=== PATIENT | female | born 1970 | race Two or more races ===

== ENCOUNTER → 2020-12-13 | Outpatient (CLI) | payer BC ==
[2020-12-13 11:53] LABS: Basophils # (auto) 0 10 ^3/uL (0-0.2); Basophils % (auto) 0.7 % (0.0-2.0); Eosinophils # (auto) 0.2 10 ^3/uL (0-0.8); Eosinophils % (auto) 2.8 % (0.0-7.0); Hematocrit 35.4 % (36.0-46.0); Hemoglobin 12.3 g/dL (12.2-16.2); Lymphocytes # (auto) 1.3 10 ^3/uL (0.4-5.4); Lymphocytes % (auto) 19.4 % (10.0-50.0); Mean Corpuscular Hemoglobin 30.6 pg (28.0-32.0); Mean Corpuscular Hgb Conc. 34.7 g/dL (32.0-36.0); Mean Corpuscular Volume 88.2 fL (80.0-100.0); Monocytes # (auto) 0.3 10 ^3/uL (0-1.3); Monocytes % (auto) 4.2 % (0.0-12.0); Neutrophils # (auto) 4.8 10 ^3/uL (1.6-8.6); Neutrophils % (auto) 72.9 % (37.0-80.0); Red Blood Cells 4.02 10^6/uL (4.0-5.20); Red Cell Distribution Width 12.7 % (11.8-14.3); White Blood Cell 6.6 10^3/uL (4.4-10.8)
[2020-12-13 12:35] LABS: Albumin 3.5 g/dL (3.4-5.0); Calcium 9.2 mg/dL (8.5-10.1); Potassium 4.3 mmol/L (3.5-5.1)
[2020-12-13 12:51] LABS: BUN/Creatinine Ratio 18.9; Bilirubin, Total 0.2 mg/dL (0.2-1.0); Total Protein 7.8 g/dL (6.4-8.2)
== END | disposition home or self-care (01) ==
LOC: LAB 11:15
PROVIDERS: ATTEND Internal Medicine
DX: K62.5 Hemorrhage of anus and rectum (principal)
CPT/HCPCS: 36415; 80053; 85025; 86677

== ENCOUNTER 2021-02-23 13:25 | Inpatient (IN) | payer BC ==
[2021-02-18 10:02] LABS: Basophils # (auto) 0 10 ^3/uL (0-0.2); Basophils % (auto) 0.6 % (0.0-2.0); Eosinophils # (auto) 0.2 10 ^3/uL (0-0.8); Eosinophils % (auto) 3.2 % (0.0-7.0); Hematocrit 34.4 % (36.0-46.0); Hemoglobin 11.1 g/dL (12.2-16.2); Lymphocytes # (auto) 1.4 10 ^3/uL (0.4-5.4); Mean Corpuscular Hemoglobin 27.7 pg (28.0-32.0); Mean Corpuscular Hgb Conc. 32.3 g/dL (32.0-36.0); Mean Corpuscular Volume 85.7 fL (80.0-100.0); Monocytes # (auto) 0.4 10 ^3/uL (0-1.3); Neutrophils # (auto) 4.4 10 ^3/uL (1.6-8.6); Neutrophils % (auto) 68.2 % (37.0-80.0); Red Blood Cells 4.01 10^6/uL (4.0-5.20); Red Cell Distribution Width 13.3 % (11.8-14.3); White Blood Cell 6.4 10^3/uL (4.4-10.8)
[2021-02-18 13:35] LABS: Potassium 3.7 mmol/L (3.5-5.1)
[2021-02-18 13:54] LABS: BUN/Creatinine Ratio 15.9
[2021-02-18 13:58] LABS: Albumin 3.5 g/dL (3.4-5.0); Bilirubin, Total 0.2 mg/dL (0.2-1.0)
[~2021-02-23] VITALS: Ht 144.8 cm; Wt 52.7 kg
[~2021-02-23 13:25] MED LIST: PANT40T PO
[2021-02-23] MEDS ORDERED: LIDOCAINE VISCOUS 2% 15ML UD ONE (13:49)
[2021-02-23] MEDS ORDERED: SODIUM CHLORIDE LOCK 10 ML ONE (13:49)
[2021-02-23] MEDS: fentaNYL CITRATE 100 MCG/2 ML VL ONE ×2 (16:04→19:00)
[2021-02-23] MEDS: diphenhdrAMINE HCL 50 MG/1 ML VL ONE ×2 (19:00→19:14)
[2021-02-23] MEDS: MIDAZOLAM HCL 5 MG/ML-1ML VIAL ONE ×2 (19:00→19:04)
[2021-02-23] MEDS ORDERED: NITROGLYCERIN 0.4 MG SL TAB SL PRN (20:15)
[2021-02-23] MEDS ORDERED: MORPHINE SULFATE INJECTION 2 MG/ML SYRG IV PRN (20:15)
[2021-02-23 21:46] LABS: INR 1.02 (0.9-1.15); Partial Thromboplastin Time 29.3 sec (23.6-33.0)
[2021-02-23] MEDS: MORPHINE SULFATE INJECTION 2 MG/ML SYRG IV PRN (21:52)
[2021-02-24] VITALS (9 sets, daily range): BP systolic 115–138; BP diastolic 69–90
[2021-02-24] MEDS: D5W/SOD CHL 0.45%/KCL 20MEQ 1,000 ML IV SCH ×3 (00:07→18:08)
[2021-02-24] MEDS ORDERED: OMNIPAQUE ORAL SOLN 500ml 12mg/ml PO ONE (09:31)
[2021-02-24] MEDS ORDERED: TPN PER PHARMACY 0 ML IV SCH (16:00)
[2021-02-24] MEDS: PANTOPRAZOLE 40 MG/10 ML VIAL INJ IV SCH (16:28)
[2021-02-24 18:40] LABS: Albumin 3.3 g/dL (3.4-5.0); Magnesium 2.1 mg/dL (1.6-2.6)
[2021-02-24 19:09] LABS: BUN/Creatinine Ratio 6.3; Bilirubin, Total 0.3 mg/dL (0.2-1.0); Phosphorus 2.3 mg/dL (2.5-4.90); Pre Albumin 15.1 mg/dL (20.0-40.0); Total Protein 7.5 g/dL (6.4-8.2)
[2021-02-24 19:28] LABS: Calcium 9.4 mg/dL (8.5-10.1)
[2021-02-24] MEDS ORDERED: AMINO ACID INFUSION IN D10W 1,000 ML IV NR (20:00)
[2021-02-24] MEDS ORDERED: SODIUM PHOSPHATES 20 MEQ in SODIUM CHL 0.9% 100 ML IV ONE (21:00)
[2021-02-24] MEDS ORDERED: POTASSIUM PHOSPHATE 22 MEQ in SODIUM CHL 0.9% 100 ML IV ONE (21:00)
[2021-02-24] MEDS: InsuLIN REG 1unit/0.01ml Soln (100units/ml) SC SCH (23:54)
[2021-02-24] MEDS: ACCU-CHEK COMFORT CURVE STRIP VI SCH (23:54)
[2021-02-25] MEDS ORDERED: DEXTROSE (50%) 50ML SYRG IV SCH
[2021-02-25] MEDS: D5W/SOD CHL 0.45%/KCL 20MEQ 1,000 ML IV SCH ×2 (02:15→15:38)
[2021-02-25 05:00] VITALS: BP 121/57
[2021-02-25] MEDS: InsuLIN REG 1unit/0.01ml Soln (100units/ml) SC SCH ×3 (06:00→18:00)
[2021-02-25] MEDS: ACCU-CHEK COMFORT CURVE STRIP VI SCH ×3 (06:09→18:00)
[2021-02-25 06:24] LABS: Basophils # (auto) 0 10 ^3/uL (0-0.2); Basophils % (auto) 0.3 % (0.0-2.0); Eosinophils # (auto) 0.1 10 ^3/uL (0-0.8); Eosinophils % (auto) 1.6 % (0.0-7.0); Hematocrit 33.7 % (36.0-46.0); Hemoglobin 10.8 g/dL (12.2-16.2); Lymphocytes # (auto) 1.2 10 ^3/uL (0.4-5.4); Lymphocytes % (auto) 15.2 % (10.0-50.0); Mean Corpuscular Hemoglobin 27.1 pg (28.0-32.0); Mean Corpuscular Hgb Conc. 32.2 g/dL (32.0-36.0); Mean Corpuscular Volume 84.2 fL (80.0-100.0); Monocytes # (auto) 0.5 10 ^3/uL (0-1.3); Monocytes % (auto) 6.3 % (0.0-12.0); Neutrophils # (auto) 5.9 10 ^3/uL (1.6-8.6); Neutrophils % (auto) 76.6 % (37.0-80.0); Red Cell Distribution Width 13.3 % (11.8-14.3); White Blood Cell 7.7 10^3/uL (4.4-10.8)
[2021-02-25 06:37] LABS: INR 1.1 (0.9-1.15); Partial Thromboplastin Time 30.2 sec (23.6-33.0)
[2021-02-25 06:45] LABS: Albumin 3.1 g/dL (3.4-5.0); Calcium 8.9 mg/dL (8.5-10.1); Magnesium 2.2 mg/dL (1.6-2.6); Potassium 3.7 mmol/L (3.5-5.1)
[2021-02-25 06:49] LABS: BUN/Creatinine Ratio 10.9; Bilirubin, Total 0.2 mg/dL (0.2-1.0); Total Protein 7.4 g/dL (6.4-8.2)
[2021-02-25 08:31] VITALS: BP 114/92
[2021-02-25] MEDS: PANTOPRAZOLE 40 MG/10 ML VIAL INJ IV SCH (10:00)
[2021-02-25 12:24] VITALS: BP 130/98
[2021-02-25] MEDS ORDERED: LIDOCAINE 1% (LOCAL ANESTH.) PF 5ml SDV ID ONE (14:45)
[2021-02-25 16:35] VITALS: BP 122/83
[2021-02-25 20:00] VITALS: BP 139/87
[2021-02-25] MEDS ORDERED: POTASSIUM ACETATE IV NR ×9 (20:00)
[2021-02-25] MEDS ORDERED: FAT EMULSION IV NR ×9 (20:00)
[2021-02-25] MEDS ORDERED: SODIUM PHOSPHATES IV NR ×9 (20:00)
[2021-02-25] MEDS ORDERED: [UNRECOGNIZED DRUG - OTHER] IV NR ×9 (20:00)
[2021-02-25 22:00] VITALS: BP 139/87
[2021-02-25] MEDS: SODIUM CHLOR 0.9% PF (SALINE LOCK) 10ML VIAL/SYR IV SCH (22:41)
[2021-02-26] MEDS: D5W/SOD CHL 0.45%/KCL 20MEQ 1,000 ML IV SCH ×3 (01:26→21:05)
[2021-02-26 05:00] VITALS: BP 119/70
[2021-02-26] MEDS: InsuLIN REG 1unit/0.01ml Soln (100units/ml) SC SCH ×5 (06:00→23:30)
[2021-02-26 06:03] LABS: Potassium 3.9 mmol/L (3.5-5.1)
[2021-02-26 06:09] LABS: Albumin 3.4 g/dL (3.4-5.0); BUN/Creatinine Ratio 16.1; Calcium 9.3 mg/dL (8.5-10.1); Total Protein 8.4 g/dL (6.4-8.2)
[2021-02-26 06:13] LABS: Bilirubin, Total 0.3 mg/dL (0.2-1.0)
[2021-02-26] MEDS: ACCU-CHEK COMFORT CURVE STRIP VI SCH ×5 (06:58→23:28)
[2021-02-26] MEDS ORDERED: MIDAZOLAM HCL 2MG/2ML 2ml VIAL (1mg/ml) ONE (07:29)
[2021-02-26] MEDS ORDERED: fentaNYL CITRATE 5 ML ONE (07:29)
[2021-02-26] MEDS ORDERED: ROCURONIUM 10MG/ML 10ML VIAL IV ONE (07:30)
[2021-02-26] MEDS ORDERED: cefTRIAXone 1GM/50ML D5W 50 ML IV ONE (07:31)
[2021-02-26] MEDS ORDERED: metroNIDAZOLE 500MG/100ML 100 ML IV ONE (07:32)
[2021-02-26] MEDS ORDERED: PROPOFOL 10 MG/ML 20 ML IV ONE (07:59)
[2021-02-26] MEDS ORDERED: LIDOCAINE 2% (LOCAL ANESTH.) PF 5ml SDV ONE (08:00)
[2021-02-26] MEDS ORDERED: ONDANSETRON HCL 4 MG/2 ML VIAL ONE (08:00)
[2021-02-26] MEDS ORDERED: HYDROmorphone HCL 2 MG/ML VL ONE (08:01)
[2021-02-26] MEDS ORDERED: NALOXONE HCL 0.4 MG/ML VIAL ONE (08:39)
[2021-02-26] MEDS ORDERED: POVIDONE IODINE 10 % TOPICAL OINT 30GM TOP ONE (08:54)
[2021-02-26] MEDS ORDERED: GLYCOPYRROLATE 0.2 MG/ML 1ML VIAL ONE (09:01)
[2021-02-26] MEDS ORDERED: NEOSTIGMINE 1 MG/ML INJ (10mg/10ML VIAL) ONE (09:02)
[2021-02-26] MEDS ORDERED: HYDROmorphone HCL 2 MG/ML VL IV PRN (09:45)
[2021-02-26] MEDS ORDERED: ONDANSETRON HCL 4 MG/2 ML VIAL IV PRN (09:45)
[2021-02-26] MEDS: SODIUM CHLOR 0.9% PF (SALINE LOCK) 10ML VIAL/SYR IV SCH ×2 (10:00→21:49)
[2021-02-26] MEDS: PANTOPRAZOLE 40 MG/10 ML VIAL INJ IV SCH (10:00)
[2021-02-26] MEDS: MORPHINE SULFATE INJECTION 2 MG/ML SYRG IV PRN (12:31)
[2021-02-26 12:45] VITALS: BP 142/86
[2021-02-26] MEDS: HYDROmorphone HCL 2 MG/ML VL IV PRN ×3 (15:25→21:59)
[2021-02-26] MEDS: metroNIDAZOLE 500MG/100ML 100 ML IV SCH ×2 (15:25→21:49)
[2021-02-26] MEDS ORDERED: D5W/SOD CHL 0.45%/KCL 20MEQ 1,000 ML IV SCH ×2 (15:45)
[2021-02-26 16:41] VITALS: BP 126/75
[2021-02-26] MEDS ORDERED: traMADol HCL 50 MG TAB PO ONE (18:00)
[2021-02-26] MEDS ORDERED: TPN PER PHARMACY IV NR ×6 (20:00)
[2021-02-26 22:00] VITALS: BP 124/70
[2021-02-27] MEDS: ONDANSETRON HCL 4 MG/2 ML VIAL IV PRN ×2 (01:32→09:17)
[2021-02-27] MEDS: HYDROmorphone HCL 2 MG/ML VL IV PRN ×5 (01:36→22:02)
[2021-02-27 05:00] VITALS: BP 113/63
[2021-02-27] MEDS: metroNIDAZOLE 500MG/100ML 100 ML IV SCH ×3 (05:09→22:07)
[2021-02-27] MEDS: ACCU-CHEK COMFORT CURVE STRIP VI SCH ×4 (05:17→23:48)
[2021-02-27] MEDS: InsuLIN REG 1unit/0.01ml Soln (100units/ml) SC SCH ×4 (05:27→23:55)
[2021-02-27 09:00] VITALS: BP 116/66
[2021-02-27] MEDS: PANTOPRAZOLE 40 MG/10 ML VIAL INJ IV SCH (09:16)
[2021-02-27] MEDS: SODIUM CHLOR 0.9% PF (SALINE LOCK) 10ML VIAL/SYR IV SCH ×2 (09:17→22:07)
[2021-02-27] MEDS: cefTRIAXone 1GM/50ML D5W 50 ML IV SCH (09:17)
[2021-02-27 12:28] LABS: Basophils # (auto) 0 10 ^3/uL (0-0.2); Eosinophils # (auto) 0 10 ^3/uL (0-0.8); Hematocrit 28.5 % (36.0-46.0); Hemoglobin 9.4 g/dL (12.2-16.2); Lymphocytes # (auto) 0.8 10 ^3/uL (0.4-5.4); Mean Corpuscular Hemoglobin 27.7 pg (28.0-32.0); Monocytes # (auto) 0.7 10 ^3/uL (0-1.3); Monocytes % (auto) 4.3 % (0.0-12.0); Neutrophils # (auto) 13.7 10 ^3/uL (1.6-8.6); Neutrophils % (auto) 90.7 % (37.0-80.0); Red Blood Cells 3.39 10^6/uL (4.0-5.20); Red Cell Distribution Width 13.3 % (11.8-14.3); White Blood Cell 15.1 10^3/uL (4.4-10.8)
[2021-02-27 12:42] LABS: Potassium 3.8 mmol/L (3.5-5.1)
[2021-02-27 12:49] LABS: Albumin 2.7 g/dL (3.4-5.0); BUN/Creatinine Ratio 21.2; Bilirubin, Total 0.1 mg/dL (0.2-1.0); Calcium 8.2 mg/dL (8.5-10.1); Magnesium 2.3 mg/dL (1.6-2.6); Phosphorus 1.8 mg/dL (2.5-4.90); Total Protein 6.7 g/dL (6.4-8.2)
[2021-02-27] MEDS: D5W/SOD CHL 0.45%/KCL 20MEQ 1,000 ML IV SCH (12:57)
[2021-02-27 13:00] VITALS: BP 120/69
[2021-02-27] MEDS ORDERED: POTASSIUM PHOSPHATE 22 MEQ in SODIUM CHL 0.9% 100 ML IV ONE (13:15)
[2021-02-27 17:00] VITALS: BP 122/64
[2021-02-27] MEDS ORDERED: TPN PER PHARMACY IV NR ×8 (20:00)
[2021-02-27 22:00] VITALS: BP 138/77
[2021-02-28] MEDS: HYDROmorphone HCL 2 MG/ML VL IV PRN ×4 (03:49→21:02)
[2021-02-28 05:00] VITALS: BP 95/120
[2021-02-28] MEDS: ACCU-CHEK COMFORT CURVE STRIP VI SCH ×3 (05:41→18:08)
[2021-02-28] MEDS: metroNIDAZOLE 500MG/100ML 100 ML IV SCH ×2 (05:41→14:00)
[2021-02-28] MEDS: InsuLIN REG 1unit/0.01ml Soln (100units/ml) SC SCH ×3 (05:42→18:09)
[2021-02-28 06:36] LABS: Potassium 3.6 mmol/L (3.5-5.1)
[2021-02-28 06:46] LABS: Albumin 2.7 g/dL (3.4-5.0); BUN/Creatinine Ratio 20.4; Bilirubin, Total 0.2 mg/dL (0.2-1.0); Calcium 7.5 mg/dL (8.5-10.1); Magnesium 2.1 mg/dL (1.6-2.6); Total Protein 6.9 g/dL (6.4-8.2)
[2021-02-28] MEDS: cefTRIAXone 1GM/50ML D5W 50 ML IV SCH (08:52)
[2021-02-28 09:00] VITALS: BP 134/84
[2021-02-28] MEDS: PANTOPRAZOLE 40 MG/10 ML VIAL INJ IV SCH (09:41)
[2021-02-28] MEDS: SODIUM CHLOR 0.9% PF (SALINE LOCK) 10ML VIAL/SYR IV SCH ×2 (09:41→21:21)
[2021-02-28] MEDS ORDERED: POTASSIUM PHOSP 22MEQ(15MMOLE) in NS 100 ML IV ONE (09:45)
[2021-02-28] MEDS: D5W/SOD CHL 0.45%/KCL 20MEQ 1,000 ML IV SCH (10:38)
[2021-02-28 13:00] VITALS: BP 145/81
[2021-02-28 17:00] VITALS: BP 139/80
[2021-02-28] MEDS ORDERED: TPN PER PHARMACY IV NR ×9 (20:00)
[2021-02-28 22:13] VITALS: BP 123/85
[2021-03-01] MEDS: ACCU-CHEK COMFORT CURVE STRIP VI SCH ×5 (00:19→23:37)
[2021-03-01] MEDS: HYDROmorphone HCL 2 MG/ML VL IV PRN ×3 (03:10→20:02)
[2021-03-01] MEDS: D5W/SOD CHL 0.45%/KCL 20MEQ 1,000 ML IV SCH ×3 (03:27→20:58)
[2021-03-01 05:23] VITALS: BP 130/80
[2021-03-01] MEDS: InsuLIN REG 1unit/0.01ml Soln (100units/ml) SC SCH ×5 (05:36→23:41)
[2021-03-01 07:07] LABS: Basophils # (auto) 0 10 ^3/uL (0-0.2); Basophils % (auto) 0.3 % (0.0-2.0); Eosinophils # (auto) 0.2 10 ^3/uL (0-0.8); Eosinophils % (auto) 1.5 % (0.0-7.0); Hematocrit 30.9 % (36.0-46.0); Hemoglobin 10.3 g/dL (12.2-16.2); Lymphocytes % (auto) 8.5 % (10.0-50.0); Mean Corpuscular Hemoglobin 27.8 pg (28.0-32.0); Mean Corpuscular Hgb Conc. 33.4 g/dL (32.0-36.0); Mean Corpuscular Volume 83.2 fL (80.0-100.0); Monocytes # (auto) 0.7 10 ^3/uL (0-1.3); Monocytes % (auto) 5.9 % (0.0-12.0); Neutrophils # (auto) 9.8 10 ^3/uL (1.6-8.6); Neutrophils % (auto) 83.8 % (37.0-80.0); Red Blood Cells 3.71 10^6/uL (4.0-5.20); Red Cell Distribution Width 13.5 % (11.8-14.3); White Blood Cell 11.7 10^3/uL (4.4-10.8)
[2021-03-01 07:29] LABS: Albumin 2.6 g/dL (3.4-5.0); BUN/Creatinine Ratio 22.2; Calcium 8.4 mg/dL (8.5-10.1); Magnesium 2.3 mg/dL (1.6-2.6)
[2021-03-01 07:32] LABS: Bilirubin, Total 0.3 mg/dL (0.2-1.0); Phosphorus 2.5 mg/dL (2.5-4.90); Total Protein 7.1 g/dL (6.4-8.2)
[2021-03-01 09:00] VITALS: BP 127/87
[2021-03-01] MEDS: cefTRIAXone 1GM/50ML D5W 50 ML IV SCH (09:52)
[2021-03-01] MEDS: PANTOPRAZOLE 40 MG/10 ML VIAL INJ IV SCH (09:52)
[2021-03-01] MEDS: SODIUM CHLOR 0.9% PF (SALINE LOCK) 10ML VIAL/SYR IV SCH ×2 (09:53→21:18)
[2021-03-01] MEDS ORDERED: SORE THROAT SPRAY 6OZ BOTTLE MT PRN (10:15)
[2021-03-01 13:00] VITALS: BP 134/87
[2021-03-01 17:00] VITALS: BP 136/97
[2021-03-01] MEDS ORDERED: TPN PER PHARMACY IV ONE ×8 (20:00)
[2021-03-01 21:59] VITALS: BP 135/83
[2021-03-02] MEDS: HYDROmorphone HCL 2 MG/ML VL IV PRN ×4 (00:36→20:48)
[2021-03-02 04:42] VITALS: BP 121/78
[2021-03-02 05:23] LABS: Basophils # (auto) 0 10 ^3/uL (0-0.2); Basophils % (auto) 0.2 % (0.0-2.0); Eosinophils # (auto) 0.3 10 ^3/uL (0-0.8); Eosinophils % (auto) 2.2 % (0.0-7.0); Hematocrit 32.2 % (36.0-46.0); Hemoglobin 10.4 g/dL (12.2-16.2); Lymphocytes # (auto) 0.9 10 ^3/uL (0.4-5.4); Lymphocytes % (auto) 8.1 % (10.0-50.0); Mean Corpuscular Hemoglobin 27.1 pg (28.0-32.0); Mean Corpuscular Hgb Conc. 32.4 g/dL (32.0-36.0); Mean Corpuscular Volume 83.7 fL (80.0-100.0); Monocytes # (auto) 0.8 10 ^3/uL (0-1.3); Monocytes % (auto) 6.9 % (0.0-12.0); Neutrophils # (auto) 9.5 10 ^3/uL (1.6-8.6); Neutrophils % (auto) 82.6 % (37.0-80.0); Nucleated Red Blood Cells % 0.1 %; Red Blood Cells 3.85 10^6/uL (4.0-5.20); Red Cell Distribution Width 13.4 % (11.8-14.3); White Blood Cell 11.5 10^3/uL (4.4-10.8)
[2021-03-02 05:46] LABS: Calcium 8.5 mg/dL (8.5-10.1); Potassium 4.2 mmol/L (3.5-5.1)
[2021-03-02 05:52] LABS: Albumin 2.6 g/dL (3.4-5.0); BUN/Creatinine Ratio 36.4; Bilirubin, Total 0.2 mg/dL (0.2-1.0); Magnesium 2.5 mg/dL (1.6-2.6); Phosphorus 3.6 mg/dL (2.5-4.90); Total Protein 7.5 g/dL (6.4-8.2)
[2021-03-02] MEDS: InsuLIN REG 1unit/0.01ml Soln (100units/ml) SC SCH ×3 (06:00→18:00)
[2021-03-02] MEDS: ACCU-CHEK COMFORT CURVE STRIP VI SCH ×3 (06:15→18:05)
[2021-03-02 08:32] VITALS: BP 134/89
[2021-03-02] MEDS: PANTOPRAZOLE 40 MG/10 ML VIAL INJ IV SCH (10:14)
[2021-03-02] MEDS: cefTRIAXone 1GM/50ML D5W 50 ML IV SCH (10:15)
[2021-03-02] MEDS: SODIUM CHLOR 0.9% PF (SALINE LOCK) 10ML VIAL/SYR IV SCH ×2 (10:17→23:09)
[2021-03-02 13:05] VITALS: BP 138/84
[2021-03-02 17:21] VITALS: BP 95/135
[2021-03-02] MEDS: D5W/SOD CHL 0.45%/KCL 20MEQ 1,000 ML IV SCH (18:07)
[2021-03-02] MEDS ORDERED: TPN PER PHARMACY IV NR ×10 (20:00)
[2021-03-02 22:00] VITALS: BP 136/85
[2021-03-03] MEDS: ACCU-CHEK COMFORT CURVE STRIP VI SCH ×5 (00:18→23:56)
[2021-03-03] MEDS: HYDROmorphone HCL 2 MG/ML VL IV PRN ×3 (04:16→21:00)
[2021-03-03 05:00] VITALS: BP 117/86
[2021-03-03] MEDS: InsuLIN REG 1unit/0.01ml Soln (100units/ml) SC SCH ×5 (06:00→23:56)
[2021-03-03 06:01] LABS: Basophils # (auto) 0 10 ^3/uL (0-0.2); Eosinophils # (auto) 0.4 10 ^3/uL (0-0.8); Hemoglobin 9.6 g/dL (12.2-16.2); Lymphocytes # (auto) 0.9 10 ^3/uL (0.4-5.4); White Blood Cell 8.6 10^3/uL (4.4-10.8)
[2021-03-03 06:04] LABS: Basophils % (auto) 0.4 % (0.0-2.0); Eosinophils % (auto) 4.9 % (0.0-7.0); Hematocrit 31.9 % (36.0-46.0); Lymphocytes % (auto) 11.1 % (10.0-50.0); Mean Corpuscular Hemoglobin 29.5 pg (28.0-32.0); Mean Corpuscular Hgb Conc. 30.2 g/dL (32.0-36.0); Mean Corpuscular Volume 97.7 fL (80.0-100.0); Monocytes # (auto) 0.6 10 ^3/uL (0-1.3); Monocytes % (auto) 7.4 % (0.0-12.0); Neutrophils # (auto) 6.5 10 ^3/uL (1.6-8.6); Neutrophils % (auto) 76.2 % (37.0-80.0); Red Blood Cells 3.27 10^6/uL (4.0-5.20); Red Cell Distribution Width 14.2 % (11.8-14.3)
[2021-03-03 08:06] VITALS: BP 124/75
[2021-03-03] MEDS: cefTRIAXone 1GM/50ML D5W 50 ML IV SCH (09:14)
[2021-03-03] MEDS: PANTOPRAZOLE 40 MG/10 ML VIAL INJ IV SCH (09:14)
[2021-03-03] MEDS: SODIUM CHLOR 0.9% PF (SALINE LOCK) 10ML VIAL/SYR IV SCH ×2 (09:15→21:49)
[2021-03-03 09:54] LABS: Albumin 2.4 g/dL (3.4-5.0); Bilirubin, Total 0.2 mg/dL (0.2-1.0); Calcium 8.1 mg/dL (8.5-10.1); Magnesium 2.4 mg/dL (1.6-2.6); Phosphorus 3.7 mg/dL (2.5-4.90); Total Protein 6.9 g/dL (6.4-8.2)
[2021-03-03 13:09] VITALS: BP 135/80
[2021-03-03 17:13] VITALS: BP 138/76
[2021-03-03] MEDS ORDERED: TPN PER PHARMACY IV NR ×9 (20:00)
[2021-03-03 22:00] VITALS: BP 135/95
[2021-03-04] VITALS (11 sets, daily range): BP systolic 125–140; BP diastolic 75–89
[2021-03-04] MEDS: HYDROmorphone HCL 2 MG/ML VL IV PRN ×4 (04:27→20:51)
[2021-03-04] MEDS: ACCU-CHEK COMFORT CURVE STRIP VI SCH (06:00)
[2021-03-04 06:24] LABS: Albumin 2.7 g/dL (3.4-5.0); Calcium 8.7 mg/dL (8.5-10.1); Magnesium 2.7 mg/dL (1.6-2.6)
[2021-03-04 06:30] LABS: BUN/Creatinine Ratio 43.5; Bilirubin, Total 0.2 mg/dL (0.2-1.0); Phosphorus 4.8 mg/dL (2.5-4.90); Pre Albumin 21.7 mg/dL (20.0-40.0); Total Protein 7.4 g/dL (6.4-8.2)
[2021-03-04] MEDS: InsuLIN REG 1unit/0.01ml Soln (100units/ml) SC SCH (06:58)
[2021-03-04] MEDS: PANTOPRAZOLE 40 MG/10 ML VIAL INJ IV SCH (09:45)
[2021-03-04] MEDS: SODIUM CHLOR 0.9% PF (SALINE LOCK) 10ML VIAL/SYR IV SCH ×2 (09:45→20:51)
[2021-03-04] MEDS ORDERED: HYDROcodone-ACET 5/325MG TAB PO PRN (10:45)
[2021-03-04 10:51] LABS: INR 1.07 (0.9-1.15); Partial Thromboplastin Time 27.5 sec (23.6-33.0)
[2021-03-04] MEDS ORDERED: fentaNYL CITRATE 100 MCG/2 ML VL IV ONE (11:45)
[2021-03-04] MEDS ORDERED: MIDAZOLAM HCL 2MG/2ML 2ml VIAL (1mg/ml) IV ONE (11:45)
[2021-03-04] MEDS ORDERED: GELATIN 1 SPONGE SIZE 50 TOP ONE (13:29)
[2021-03-04] MEDS ORDERED: LIDOCAINE 2%HCL (LOCAL ANESTH.) INJ 20ML MDV ONE (13:29)
[2021-03-04] MEDS: DOCUSATE SOD 100 MG CAP PO SCH (20:51)
[2021-03-05] MEDS: HYDROmorphone HCL 2 MG/ML VL IV PRN (01:58)
[2021-03-05 07:36] LABS: Basophils # (auto) 0 10 ^3/uL (0-0.2); Basophils % (auto) 0.2 % (0.0-2.0); Eosinophils # (auto) 0.1 10 ^3/uL (0-0.8); Hematocrit 29.1 % (36.0-46.0); Hemoglobin 9.8 g/dL (12.2-16.2); Lymphocytes # (auto) 0.7 10 ^3/uL (0.4-5.4); Lymphocytes % (auto) 6.9 % (10.0-50.0); Mean Corpuscular Hemoglobin 27.9 pg (28.0-32.0); Mean Corpuscular Hgb Conc. 33.5 g/dL (32.0-36.0); Mean Corpuscular Volume 83.2 fL (80.0-100.0); Monocytes # (auto) 0.8 10 ^3/uL (0-1.3); Monocytes % (auto) 7.4 % (0.0-12.0); Neutrophils # (auto) 9.2 10 ^3/uL (1.6-8.6); Neutrophils % (auto) 84.5 % (37.0-80.0); White Blood Cell 10.9 10^3/uL (4.4-10.8)
[2021-03-05 07:53] LABS: Potassium 4.3 mmol/L (3.5-5.1)
[2021-03-05 07:59] LABS: Albumin 2.7 g/dL (3.4-5.0); BUN/Creatinine Ratio 23.8; Calcium 8.8 mg/dL (8.5-10.1)
[2021-03-05 08:07] LABS: Bilirubin, Total 0.3 mg/dL (0.2-1.0); Total Protein 7.3 g/dL (6.4-8.2)
[2021-03-05] MEDS: PANTOPRAZOLE 40 MG/10 ML VIAL INJ IV SCH (08:26)
[2021-03-05] MEDS: DOCUSATE SOD 100 MG CAP PO SCH (08:27)
[2021-03-05] MEDS: SODIUM CHLOR 0.9% PF (SALINE LOCK) 10ML VIAL/SYR IV SCH (08:27)
[2021-03-05 08:29] VITALS: BP 125/82
[2021-03-05 13:00] VITALS: BP 123/81
[2021-03-05 13:23] VITALS: BP 123/81
== END 2021-03-05 14:30 | disposition home or self-care (01) | DRG 330 ==
LOC: GI 13:25 → OVERFLOW 20:11 → EEVIPCON 20:11 → EAST 23:04 → CENTRAL 02-24 19:50 → TELE-CENTR 03-01 07:35
PROVIDERS: ADMIT Nurse Practitioner Acute Care; ATTEND Internal Medicine
PROC: 0DB98ZX Excision of Duodenum, Via Natural or Artificial Opening Endoscopic, Diagnostic (ICD-10-PCS; 2021-02-23)
PROC: 0DB68ZX Excision of Stomach, Via Natural or Artificial Opening Endoscopic, Diagnostic (ICD-10-PCS; 2021-02-23)
PROC: 0DBM8ZX Excision of Descending Colon, Via Natural or Artificial Opening Endoscopic, Diagnostic (ICD-10-PCS; 2021-02-23)
PROC: B548ZZA Ultrasonography of Superior Vena Cava, Guidance (ICD-10-PCS; 2021-02-25)
PROC: 02HV33Z Insertion of Infusion Device into Superior Vena Cava, Percutaneous Approach (ICD-10-PCS; 2021-02-25)
PROC: 0D1M0ZP Bypass Descending Colon to Rectum, Open Approach (ICD-10-PCS; 2021-02-26)
PROC: 0DTN0ZZ Resection of Sigmoid Colon, Open Approach (ICD-10-PCS; principal; 2021-02-26 07:33)
PROC: 3E0436Z Introduction of Nutritional Substance into Central Vein, Percutaneous Approach (ICD-10-PCS; 2021-03-02)
PROC: 0FB03ZX Excision of Liver, Percutaneous Approach, Diagnostic (ICD-10-PCS; 2021-03-04)
DX: C18.7 Malignant neoplasm of sigmoid colon (principal); C78.7 Secondary malignant neoplasm of liver and intrahepatic bile duct; D64.9 Anemia, unspecified; D72.829 Elevated white blood cell count, unspecified; K29.70 Gastritis, unspecified, without bleeding; R16.0 Hepatomegaly, not elsewhere classified; K29.80 Duodenitis without bleeding; Z20.822 Contact with and (suspected) exposure to COVID-19; Z79.899 Other long term (current) drug therapy; Z82.49 Family history of ischemic heart disease and other diseases of the circulatory system; Z87.11 Personal history of peptic ulcer disease; Z88.8 Allergy status to other drugs, medicaments and biological substances
CPT/HCPCS: 10022; 36415; 36569; 43239; 45378; 71045; 71260; 74150; 74177; 77012; 80053; 81025; 82040; 82378; 82962; 83735; 84100; 84478; 84702; 85025; 85610; 85730; 86850; 86900; 86901; C9113; G0378; J0696; J1815; J2001; J2250; J2405; J2704; J3490; J7131

== ENCOUNTER → 2021-04-14 | Outpatient (CLI) | payer BC ==
[2021-04-14 09:40] LABS: Eosinophils # (auto) 0.2 10 ^3/uL (0-0.8); Eosinophils % (auto) 4.1 % (0.0-7.0); Hemoglobin 10.9 g/dL (12.2-16.2); Mean Corpuscular Hgb Conc. 32.2 g/dL (32.0-36.0); Monocytes # (auto) 0.4 10 ^3/uL (0-1.3)
[2021-04-14 09:42] LABS: Basophils # (auto) 0.1 10 ^3/uL (0-0.2); Basophils % (auto) 1.1 % (0.0-2.0); Lymphocytes # (auto) 1.1 10 ^3/uL (0.4-5.4); Lymphocytes % (auto) 24.3 % (10.0-50.0); Mean Corpuscular Hemoglobin 25.7 pg (28.0-32.0); Mean Corpuscular Volume 79.8 fL (80.0-100.0); Monocytes % (auto) 7.6 % (0.0-12.0); Neutrophils # (auto) 2.9 10 ^3/uL (1.6-8.6); Neutrophils % (auto) 62.9 % (37.0-80.0); Nucleated Red Blood Cells % 0.1 %; Red Blood Cells 4.26 10^6/uL (4.0-5.20); Red Cell Distribution Width 15.7 % (11.8-14.3); White Blood Cell 4.6 10^3/uL (4.4-10.8)
[2021-04-14 11:24] LABS: Albumin 3.5 g/dL (3.4-5.0); Calcium 9.1 mg/dL (8.5-10.1); Potassium 4.6 mmol/L (3.5-5.1)
[2021-04-14 11:27] LABS: BUN/Creatinine Ratio 20.3; Bilirubin, Total 0.2 mg/dL (0.2-1.0); Total Protein 7.9 g/dL (6.4-8.2)
== END | disposition home or self-care (01) ==
LOC: LAB 09:24
PROVIDERS: ATTEND Internal Medicine
DX: C18.9 Malignant neoplasm of colon, unspecified (principal)
CPT/HCPCS: 36415; 80053; 82306; 82378; 83615; 85025

== ENCOUNTER → 2021-04-22 | Day surgery (SDC) | payer BC ==
[2021-04-20 10:15] LABS: Urine Bacteria NONE SEEN /hpf (None Seen); Urine Blood TRACE /uL (Negative); Urine WBC <1 /hpf (0 - 5)
[2021-04-20 10:27] LABS: Basophils # (auto) 0 10 ^3/uL (0-0.2); Eosinophils # (auto) 0.2 10 ^3/uL (0-0.8); Hemoglobin 11.1 g/dL (12.2-16.2); Lymphocytes # (auto) 1.4 10 ^3/uL (0.4-5.4); Monocytes # (auto) 0.4 10 ^3/uL (0-1.3); Red Cell Distribution Width 16.2 % (11.8-14.3)
[2021-04-20 10:30] LABS: Basophils % (auto) 0.7 % (0.0-2.0); Eosinophils % (auto) 3.7 % (0.0-7.0); Hematocrit 35.1 % (36.0-46.0); Lymphocytes % (auto) 23.2 % (10.0-50.0); Mean Corpuscular Hgb Conc. 31.5 g/dL (32.0-36.0); Mean Corpuscular Volume 79.2 fL (80.0-100.0); Monocytes % (auto) 6.4 % (0.0-12.0); Nucleated Red Blood Cells % 0.1 %; Red Blood Cells 4.43 10^6/uL (4.0-5.20)
[2021-04-20 10:56] LABS: Calcium 9.5 mg/dL (8.5-10.1); Potassium 4.2 mmol/L (3.5-5.1)
[2021-04-20 10:59] LABS: BUN/Creatinine Ratio 17.4; Bilirubin, Total 0.3 mg/dL (0.2-1.0); Total Protein 8.3 g/dL (6.4-8.2)
[~2021-04-22] VITALS: Ht 144.8 cm; Wt 49.4 kg
[~2021-04-22] MED LIST changes: +GLYCOPYRROLATE 0.2 MG/ML 1ML VIAL ONE; +HEPARIN 1,000 UNITS/ml 1ML VIAL ONE; +HEPARIN SODIUM (PORCINE) 5000 UNITS/ML 1ML VIAL ONE; +HYDROmorphone HCL 2 MG/ML VL IV PRN; +LIDOCAINE 1% HCL (LOCAL ANESTH.) INJ 20ML MDV ONE; +MIDAZOLAM HCL 2MG/2ML 2ml VIAL (1mg/ml) ONE; +ONDANSETRON HCL 4 MG/2 ML VIAL IV PRN; +PROPOFOL 10 MG/ML 20 ML IV ONE; +ROCURONIUM 10MG/ML 10ML VIAL IV ONE; +SUCCINYLCHOLINE CHLORIDE 20 MG/ML 10ML VIAL IV ONE; +ceFAZolin 1GM VL ONE; +ceFAZolin 1GM/50ML 50 ML IV ONE; +fentaNYL CITRATE 100 MCG/2 ML VL ONE
[2021-04-22 13:00] VITALS: BP 117/53
== END | disposition home or self-care (01) ==
LOC: SUR 08:00
PROVIDERS: ATTEND Surgery
DX: C78.7 Secondary malignant neoplasm of liver and intrahepatic bile duct (principal); C18.9 Malignant neoplasm of colon, unspecified; C25.9 Malignant neoplasm of pancreas, unspecified; Z82.49 Family history of ischemic heart disease and other diseases of the circulatory system; Z86.11 Personal history of tuberculosis; Z83.511 Family history of glaucoma; Z83.49 Family history of other endocrine, nutritional and metabolic diseases; Z98.890 Other specified postprocedural states; Z79.899 Other long term (current) drug therapy; Z20.822 Contact with and (suspected) exposure to COVID-19; Z88.8 Allergy status to other drugs, medicaments and biological substances
CPT/HCPCS: 36415; 36556; 80053; 81001; 81025; 84702; 85025; C1788; J0330; J0690; J1170; J1644; J2001; J2250; J2405; J2704; J3010; J7040; U0003; 71045

== ENCOUNTER → 2021-04-25 | Outpatient (CLI) | payer BC ==
[~2021-04-25] MED LIST changes: -GLYCOPYRROLATE 0.2 MG/ML 1ML VIAL ONE; -HEPARIN 1,000 UNITS/ml 1ML VIAL ONE; -HEPARIN SODIUM (PORCINE) 5000 UNITS/ML 1ML VIAL ONE; -HYDROmorphone HCL 2 MG/ML VL IV PRN; -LIDOCAINE 1% HCL (LOCAL ANESTH.) INJ 20ML MDV ONE; -MIDAZOLAM HCL 2MG/2ML 2ml VIAL (1mg/ml) ONE; -ONDANSETRON HCL 4 MG/2 ML VIAL IV PRN; -PROPOFOL 10 MG/ML 20 ML IV ONE; -ROCURONIUM 10MG/ML 10ML VIAL IV ONE; -SUCCINYLCHOLINE CHLORIDE 20 MG/ML 10ML VIAL IV ONE; -ceFAZolin 1GM VL ONE; -ceFAZolin 1GM/50ML 50 ML IV ONE; -fentaNYL CITRATE 100 MCG/2 ML VL ONE
[2021-04-25 15:03] LABS: Basophils # (auto) 0 10 ^3/uL (0-0.2); Eosinophils # (auto) 0.2 10 ^3/uL (0-0.8); Lymphocytes # (auto) 1.4 10 ^3/uL (0.4-5.4); Mean Corpuscular Hemoglobin 25.2 pg (28.0-32.0); Mean Corpuscular Hgb Conc. 32.1 g/dL (32.0-36.0); Monocytes # (auto) 0.5 10 ^3/uL (0-1.3); Neutrophils # (auto) 3.7 10 ^3/uL (1.6-8.6); Nucleated Red Blood Cells % 0.1 %
[2021-04-25 15:05] LABS: Basophils % (auto) 0.5 % (0.0-2.0); Eosinophils % (auto) 3.4 % (0.0-7.0); Hematocrit 33.7 % (36.0-46.0); Hemoglobin 10.8 g/dL (12.2-16.2); Lymphocytes % (auto) 24.3 % (10.0-50.0); Mean Corpuscular Volume 78.5 fL (80.0-100.0); Monocytes % (auto) 8.4 % (0.0-12.0); Neutrophils % (auto) 63.4 % (37.0-80.0); Red Blood Cells 4.29 10^6/uL (4.0-5.20); Red Cell Distribution Width 16.1 % (11.8-14.3); White Blood Cell 5.9 10^3/uL (4.4-10.8)
[2021-04-25 15:36] LABS: Albumin 3.9 g/dL (3.4-5.0); Calcium 9.3 mg/dL (8.5-10.1); Potassium 4.2 mmol/L (3.5-5.1)
[2021-04-25 15:47] LABS: Thyroid Stimulating Hormone 0.45 uIU/mL (0.358-3.74)
[2021-04-25 15:54] LABS: BUN/Creatinine Ratio 17.2; Bilirubin, Total 0.2 mg/dL (0.2-1.0); Total Protein 8.2 g/dL (6.4-8.2)
== END | disposition home or self-care (01) ==
LOC: LAB 14:44
PROVIDERS: ATTEND Internal Medicine
DX: C18.7 Malignant neoplasm of sigmoid colon (principal); C78.7 Secondary malignant neoplasm of liver and intrahepatic bile duct
CPT/HCPCS: 36415; 80053; 82378; 83615; 84436; 84443; 85025

== ENCOUNTER → 2021-05-09 | Outpatient (CLI) | payer BC ==
[2021-05-09 11:49] LABS: Basophils # (auto) 0 10 ^3/uL (0-0.2); Eosinophils # (auto) 0.2 10 ^3/uL (0-0.8); Monocytes # (auto) 0.3 10 ^3/uL (0-1.3); Monocytes % (auto) 8.3 % (0.0-12.0); Neutrophils # (auto) 1.9 10 ^3/uL (1.6-8.6); Nucleated Red Blood Cells % 0.3 %; White Blood Cell 3.4 10^3/uL (4.4-10.8)
[2021-05-09 11:52] LABS: Basophils % (auto) 0.8 % (0.0-2.0); Eosinophils % (auto) 5.2 % (0.0-7.0); Hematocrit 32.1 % (36.0-46.0); Hemoglobin 10.5 g/dL (12.2-16.2); Mean Corpuscular Hemoglobin 25.6 pg (28.0-32.0); Mean Corpuscular Hgb Conc. 32.7 g/dL (32.0-36.0); Mean Corpuscular Volume 78.3 fL (80.0-100.0); Neutrophils % (auto) 55.7 % (37.0-80.0); Red Cell Distribution Width 16.5 % (11.8-14.3)
[2021-05-09 12:55] LABS: Albumin 3.5 g/dL (3.4-5.0); Calcium 9.5 mg/dL (8.5-10.1); Potassium 4.4 mmol/L (3.5-5.1)
[2021-05-09 13:00] LABS: BUN/Creatinine Ratio 9.9; Bilirubin, Total 0.2 mg/dL (0.2-1.0); Total Protein 7.8 g/dL (6.4-8.2)
== END | disposition home or self-care (01) ==
LOC: LAB 11:30
PROVIDERS: ATTEND Internal Medicine
DX: C78.7 Secondary malignant neoplasm of liver and intrahepatic bile duct (principal); C18.7 Malignant neoplasm of sigmoid colon
CPT/HCPCS: 36415; 80053; 83615; 85025

== ENCOUNTER → 2021-05-23 | Outpatient (CLI) | payer BC ==
[2021-05-23 11:39] LABS: Basophils # (auto) 0 10 ^3/uL (0-0.2); Eosinophils # (auto) 0.1 10 ^3/uL (0-0.8); Hemoglobin 10.7 g/dL (12.2-16.2); Lymphocytes # (auto) 1.2 10 ^3/uL (0.4-5.4); Monocytes # (auto) 0.4 10 ^3/uL (0-1.3); Neutrophils # (auto) 1.4 10 ^3/uL (1.6-8.6); Neutrophils % (auto) 44.5 % (37.0-80.0); White Blood Cell 3.2 10^3/uL (4.4-10.8)
[2021-05-23 11:43] LABS: Basophils % (auto) 1.3 % (0.0-2.0); Eosinophils % (auto) 3.6 % (0.0-7.0); Hematocrit 33.3 % (36.0-46.0); Lymphocytes % (auto) 38.5 % (10.0-50.0); Mean Corpuscular Hemoglobin 24.8 pg (28.0-32.0); Mean Corpuscular Hgb Conc. 32.1 g/dL (32.0-36.0); Monocytes % (auto) 12.1 % (0.0-12.0); Nucleated Red Blood Cells % 0.3 %; Red Cell Distribution Width 17.4 % (11.8-14.3)
[2021-05-23 11:53] LABS: Mean Corpuscular Volume 77.4 fL (80.0-100.0)
[2021-05-23 12:28] LABS: Albumin 3.9 g/dL (3.4-5.0); BUN/Creatinine Ratio 14.3; Calcium 9.6 mg/dL (8.5-10.1); Potassium 4.5 mmol/L (3.5-5.1)
[2021-05-23 12:40] LABS: Bilirubin, Total 0.2 mg/dL (0.2-1.0); Total Protein 7.9 g/dL (6.4-8.2)
[2021-05-23 12:59] LABS: Thyroid Stimulating Hormone 0.86 uIU/mL (0.358-3.74)
== END | disposition home or self-care (01) ==
LOC: LAB 10:38
PROVIDERS: ATTEND Internal Medicine
DX: C18.7 Malignant neoplasm of sigmoid colon (principal); C78.7 Secondary malignant neoplasm of liver and intrahepatic bile duct
CPT/HCPCS: 36415; 80053; 82378; 83615; 84436; 84443; 85025

== ENCOUNTER → 2021-06-07 | Outpatient (CLI) | payer BC ==
[2021-06-07 10:17] LABS: Basophils # (auto) 0 10 ^3/uL (0-0.2); Basophils % (auto) 0.6 % (0.0-2.0); Eosinophils # (auto) 0.2 10 ^3/uL (0-0.8); Eosinophils % (auto) 4.4 % (0.0-7.0); Hematocrit 36.7 % (36.0-46.0); Hemoglobin 11.9 g/dL (12.2-16.2); Lymphocytes # (auto) 1.2 10 ^3/uL (0.4-5.4); Lymphocytes % (auto) 23.9 % (10.0-50.0); Mean Corpuscular Hemoglobin 26.1 pg (28.0-32.0); Mean Corpuscular Hgb Conc. 32.5 g/dL (32.0-36.0); Mean Corpuscular Volume 80.3 fL (80.0-100.0); Monocytes # (auto) 0.4 10 ^3/uL (0-1.3); Neutrophils # (auto) 3.2 10 ^3/uL (1.6-8.6); Neutrophils % (auto) 63.1 % (37.0-80.0); Nucleated Red Blood Cells % 0.1 %; Red Blood Cells 4.57 10^6/uL (4.0-5.20); Red Cell Distribution Width 20.9 % (11.8-14.3); White Blood Cell 5.1 10^3/uL (4.4-10.8)
[2021-06-07 10:47] LABS: Albumin 3.7 g/dL (3.4-5.0); Calcium 9.5 mg/dL (8.5-10.1); Potassium 4.1 mmol/L (3.5-5.1)
[2021-06-07 10:51] LABS: BUN/Creatinine Ratio 16.7; Bilirubin, Total 0.2 mg/dL (0.2-1.0); Total Protein 8.3 g/dL (6.4-8.2)
[2021-06-07 10:58] LABS: Thyroid Stimulating Hormone 0.7 uIU/mL (0.358-3.74)
[2021-06-07 11:25] LABS: Carcinoembryonic Antigen 55.9 ng/mL (<5.0 OR =); Free T4 (Free Thyroxine) 1.17 ng/dL (0.89-1.76)
== END | disposition home or self-care (01) ==
LOC: LAB 09:01
PROVIDERS: ATTEND Internal Medicine
DX: C78.7 Secondary malignant neoplasm of liver and intrahepatic bile duct (principal); C18.7 Malignant neoplasm of sigmoid colon
CPT/HCPCS: 36415; 80053; 82378; 83615; 84439; 84443; 85025

== ENCOUNTER → 2021-06-20 | Outpatient (CLI) | payer BC ==
[2021-06-20 11:30] LABS: Basophils # (auto) 0 10 ^3/uL (0-0.2); Eosinophils # (auto) 0.2 10 ^3/uL (0-0.8); Hemoglobin 11.7 g/dL (12.2-16.2); Monocytes # (auto) 0.3 10 ^3/uL (0-1.3); Neutrophils # (auto) 1.5 10 ^3/uL (1.6-8.6)
[2021-06-20 11:32] LABS: Hematocrit 34.9 % (36.0-46.0); Lymphocytes % (auto) 33.2 % (10.0-50.0); Mean Corpuscular Hgb Conc. 33.5 g/dL (32.0-36.0); Mean Corpuscular Volume 80.8 fL (80.0-100.0); Monocytes % (auto) 8.9 % (0.0-12.0); Neutrophils % (auto) 50.9 % (37.0-80.0); Nucleated Red Blood Cells % 0.2 %; Red Blood Cells 4.31 10^6/uL (4.0-5.20); Red Cell Distribution Width 22.4 % (11.8-14.3)
[2021-06-20 11:54] LABS: Albumin 3.9 g/dL (3.4-5.0); Calcium 9.6 mg/dL (8.5-10.1)
[2021-06-20 11:57] LABS: Bilirubin, Total 0.3 mg/dL (0.2-1.0)
== END | disposition home or self-care (01) ==
LOC: LAB 10:13
PROVIDERS: ATTEND Internal Medicine
DX: C18.7 Malignant neoplasm of sigmoid colon (principal); C78.7 Secondary malignant neoplasm of liver and intrahepatic bile duct
CPT/HCPCS: 36415; 80053; 83615; 85025

== ENCOUNTER → 2021-07-05 | Outpatient (CLI) | payer BC ==
[2021-07-05 11:30] LABS: Potassium 4.1 mmol/L (3.5-5.1)
[2021-07-05 11:38] LABS: Albumin 3.5 g/dL (3.4-5.0); BUN/Creatinine Ratio 21.7; Bilirubin, Total 0.2 mg/dL (0.2-1.0); Calcium 9.3 mg/dL (8.5-10.1); Total Protein 7.8 g/dL (6.4-8.2)
[2021-07-05 11:42] LABS: Basophils # (auto) 0 10 ^3/uL (0-0.2); Basophils % (auto) 0.8 % (0.0-2.0); Eosinophils # (auto) 0.1 10 ^3/uL (0-0.8); Lymphocytes % (auto) 24.1 % (10.0-50.0); Mean Corpuscular Hemoglobin 28.5 pg (28.0-32.0); Mean Corpuscular Hgb Conc. 34.2 g/dL (32.0-36.0); Mean Corpuscular Volume 83.3 fL (80.0-100.0); Monocytes # (auto) 0.4 10 ^3/uL (0-1.3); Monocytes % (auto) 10.8 % (0.0-12.0); Neutrophils # (auto) 2.5 10 ^3/uL (1.6-8.6); Neutrophils % (auto) 61.3 % (37.0-80.0); Red Cell Distribution Width 23.8 % (11.8-14.3); White Blood Cell 4.1 10^3/uL (4.4-10.8)
[2021-07-05 11:46] LABS: Thyroid Stimulating Hormone 0.79 uIU/mL (0.358-3.74)
== END | disposition home or self-care (01) ==
LOC: LAB 09:35
PROVIDERS: ATTEND Internal Medicine
DX: C18.7 Malignant neoplasm of sigmoid colon (principal); C78.7 Secondary malignant neoplasm of liver and intrahepatic bile duct
CPT/HCPCS: 36415; 80053; 82378; 83615; 84436; 84443; 85025

== ENCOUNTER → 2021-07-18 | Outpatient (CLI) | payer BC ==
[2021-07-18 11:33] LABS: Albumin 3.9 g/dL (3.4-5.0); Calcium 10.2 mg/dL (8.5-10.1); Potassium 4.2 mmol/L (3.5-5.1)
[2021-07-18 11:35] LABS: BUN/Creatinine Ratio 17.1
[2021-07-18 11:38] LABS: Bilirubin, Total 0.4 mg/dL (0.2-1.0); Total Protein 8.6 g/dL (6.4-8.2)
[2021-07-18 11:57] LABS: Basophils # (auto) 0 10 ^3/uL (0-0.2); Basophils % (auto) 0.2 % (0.0-2.0); Eosinophils # (auto) 0.1 10 ^3/uL (0-0.8); Eosinophils % (auto) 1.9 % (0.0-7.0); Hematocrit 40.2 % (36.0-46.0); Hemoglobin 13.5 g/dL (12.2-16.2); Lymphocytes # (auto) 1.3 10 ^3/uL (0.4-5.4); Lymphocytes % (auto) 20.3 % (10.0-50.0); Mean Corpuscular Hemoglobin 28.4 pg (28.0-32.0); Mean Corpuscular Hgb Conc. 33.6 g/dL (32.0-36.0); Mean Corpuscular Volume 84.5 fL (80.0-100.0); Monocytes # (auto) 1.1 10 ^3/uL (0-1.3); Monocytes % (auto) 17.1 % (0.0-12.0); Neutrophils # (auto) 3.8 10 ^3/uL (1.6-8.6); Neutrophils % (auto) 60.5 % (37.0-80.0); Nucleated Red Blood Cells % 0.1 %; Red Blood Cells 4.76 10^6/uL (4.0-5.20); Red Cell Distribution Width 23.3 % (11.8-14.3); White Blood Cell 6.4 10^3/uL (4.4-10.8)
== END | disposition home or self-care (01) ==
LOC: LAB 10:27
PROVIDERS: ATTEND Internal Medicine
DX: C18.7 Malignant neoplasm of sigmoid colon (principal); C78.7 Secondary malignant neoplasm of liver and intrahepatic bile duct
CPT/HCPCS: 36415; 80053; 83615; 85025

== ENCOUNTER → 2021-08-02 | Outpatient (CLI) | payer BC ==
[2021-08-02 12:54] LABS: Albumin 3.4 g/dL (3.4-5.0); Calcium 9.1 mg/dL (8.5-10.1); Potassium 4.3 mmol/L (3.5-5.1)
[2021-08-02 12:59] LABS: Bilirubin, Total 0.4 mg/dL (0.2-1.0); Total Protein 7.7 g/dL (6.4-8.2)
[2021-08-02 13:06] LABS: Thyroid Stimulating Hormone 0.79 uIU/mL (0.358-3.74)
[2021-08-02 15:20] LABS: Basophils # (auto) 0 10 ^3/uL (0-0.2); Eosinophils # (auto) 0.2 10 ^3/uL (0-0.8); Hematocrit 38.2 % (36.0-46.0); Hemoglobin 12.6 g/dL (12.2-16.2); Lymphocytes # (auto) 1.2 10 ^3/uL (0.4-5.4); Lymphocytes % (auto) 38.3 % (10.0-50.0); Mean Corpuscular Hemoglobin 28.8 pg (28.0-32.0); Mean Corpuscular Hgb Conc. 33.1 g/dL (32.0-36.0); Monocytes # (auto) 0.5 10 ^3/uL (0-1.3); Monocytes % (auto) 15.9 % (0.0-12.0); Neutrophils # (auto) 1.3 10 ^3/uL (1.6-8.6); Neutrophils % (auto) 39.8 % (37.0-80.0); Nucleated Red Blood Cells % 0.2 %; Red Blood Cells 4.39 10^6/uL (4.0-5.20); White Blood Cell 3.2 10^3/uL (4.4-10.8)
[2021-08-02 15:26] LABS: Red Cell Distribution Width 23.5 % (11.8-14.3)
== END | disposition home or self-care (01) ==
LOC: LAB 10:19
PROVIDERS: ATTEND Internal Medicine
DX: C18.7 Malignant neoplasm of sigmoid colon (principal); C78.7 Secondary malignant neoplasm of liver and intrahepatic bile duct
CPT/HCPCS: 36415; 80053; 82378; 83615; 84436; 84443; 85025

== ENCOUNTER → 2021-08-15 | Outpatient (CLI) | payer BC ==
[2021-08-15 10:00] LABS: Basophils # (auto) 0.1 10 ^3/uL (0-0.2); Basophils % (auto) 2.2 % (0.0-2.0); Eosinophils # (auto) 0.1 10 ^3/uL (0-0.8); Eosinophils % (auto) 3.3 % (0.0-7.0); Hematocrit 36.8 % (36.0-46.0); Hemoglobin 12.8 g/dL (12.2-16.2); Lymphocytes % (auto) 33.4 % (10.0-50.0); Mean Corpuscular Hemoglobin 30.5 pg (28.0-32.0); Mean Corpuscular Hgb Conc. 34.7 g/dL (32.0-36.0); Mean Corpuscular Volume 87.9 fL (80.0-100.0); Monocytes # (auto) 0.6 10 ^3/uL (0-1.3); Monocytes % (auto) 18.6 % (0.0-12.0); Neutrophils # (auto) 1.3 10 ^3/uL (1.6-8.6); Neutrophils % (auto) 42.5 % (37.0-80.0); Nucleated Red Blood Cells % 0.2 %; Red Blood Cells 4.18 10^6/uL (4.0-5.20); Red Cell Distribution Width 21.7 % (11.8-14.3); White Blood Cell 3.1 10^3/uL (4.4-10.8)
[2021-08-15 10:32] LABS: Albumin 3.6 g/dL (3.4-5.0); Calcium 9.3 mg/dL (8.5-10.1); Potassium 4.2 mmol/L (3.5-5.1)
[2021-08-15 10:34] LABS: BUN/Creatinine Ratio 11.1; Bilirubin, Total 0.2 mg/dL (0.2-1.0)
== END | disposition home or self-care (01) ==
LOC: LAB 09:49
PROVIDERS: ATTEND Internal Medicine
DX: C18.7 Malignant neoplasm of sigmoid colon (principal); C78.7 Secondary malignant neoplasm of liver and intrahepatic bile duct
CPT/HCPCS: 36415; 80053; 83615; 85025

== ENCOUNTER → 2021-09-12 | Outpatient (CLI) | payer BC ==
[2021-09-12 11:22] LABS: Basophils # (auto) 0.1 10 ^3/uL (0-0.2); Basophils % (auto) 0.7 % (0.0-2.0); Eosinophils # (auto) 0.1 10 ^3/uL (0-0.8); Lymphocytes % (auto) 10.5 % (10.0-50.0); Mean Corpuscular Hemoglobin 31.1 pg (28.0-32.0); Mean Corpuscular Hgb Conc. 33.2 g/dL (32.0-36.0); Mean Corpuscular Volume 93.8 fL (80.0-100.0); Monocytes % (auto) 10.5 % (0.0-12.0); Neutrophils # (auto) 7.4 10 ^3/uL (1.6-8.6); Neutrophils % (auto) 77.3 % (37.0-80.0); Red Blood Cells 2.88 10^6/uL (4.0-5.20); Red Cell Distribution Width 18.2 % (11.8-14.3); White Blood Cell 9.6 10^3/uL (4.4-10.8)
[2021-09-12 12:18] LABS: Albumin 2.9 g/dL (3.4-5.0); BUN/Creatinine Ratio 10.5; Calcium 8.8 mg/dL (8.5-10.1); Potassium 4.1 mmol/L (3.5-5.1)
[2021-09-12 12:21] LABS: Bilirubin, Total 0.3 mg/dL (0.2-1.0); Total Protein 7.4 g/dL (6.4-8.2)
== END | disposition home or self-care (01) ==
LOC: LAB 10:20
PROVIDERS: ATTEND Internal Medicine
DX: C18.7 Malignant neoplasm of sigmoid colon (principal); C78.7 Secondary malignant neoplasm of liver and intrahepatic bile duct
CPT/HCPCS: 36415; 80053; 82378; 83615; 85025

== ENCOUNTER → 2021-10-11 | Outpatient (CLI) | payer BC ==
[2021-10-11 11:20] LABS: Basophils # (auto) 0 10 ^3/uL (0-0.2); Basophils % (auto) 0.7 % (0.0-2.0); Eosinophils # (auto) 0.2 10 ^3/uL (0-0.8); Eosinophils % (auto) 3.3 % (0.0-7.0); Hematocrit 34.5 % (36.0-46.0); Hemoglobin 11.8 g/dL (12.2-16.2); Lymphocytes # (auto) 1.1 10 ^3/uL (0.4-5.4); Lymphocytes % (auto) 23.2 % (10.0-50.0); Mean Corpuscular Hemoglobin 31.4 pg (28.0-32.0); Mean Corpuscular Hgb Conc. 34.2 g/dL (32.0-36.0); Mean Corpuscular Volume 91.8 fL (80.0-100.0); Monocytes # (auto) 0.3 10 ^3/uL (0-1.3); Monocytes % (auto) 7.4 % (0.0-12.0); Neutrophils # (auto) 3.1 10 ^3/uL (1.6-8.6); Neutrophils % (auto) 65.4 % (37.0-80.0); Nucleated Red Blood Cells % 0.1 %; Red Blood Cells 3.76 10^6/uL (4.0-5.20); Red Cell Distribution Width 15.3 % (11.8-14.3); White Blood Cell 4.7 10^3/uL (4.4-10.8)
[2021-10-11 12:15] LABS: Potassium 4.3 mmol/L (3.5-5.1)
[2021-10-11 12:20] LABS: Albumin 3.3 g/dL (3.4-5.0); BUN/Creatinine Ratio 14.3; Bilirubin, Total 0.2 mg/dL (0.2-1.0); Calcium 9.2 mg/dL (8.5-10.1)
[2021-10-11 12:22] LABS: Thyroid Stimulating Hormone 0.48 uIU/mL (0.358-3.74)
== END | disposition home or self-care (01) ==
LOC: LAB 10:26
PROVIDERS: ATTEND Internal Medicine
DX: C78.7 Secondary malignant neoplasm of liver and intrahepatic bile duct (principal); C18.7 Malignant neoplasm of sigmoid colon
CPT/HCPCS: 36415; 80053; 82378; 83615; 84436; 84443; 85025

== ENCOUNTER → 2021-10-24 | Outpatient (CLI) | payer BC ==
[2021-10-24 09:15] LABS: Basophils # (auto) 0.1 10 ^3/uL (0-0.2); Basophils % (auto) 2.9 % (0.0-2.0); Eosinophils # (auto) 0.2 10 ^3/uL (0-0.8); Hematocrit 36.2 % (36.0-46.0); Hemoglobin 12.2 g/dL (12.2-16.2); Lymphocytes # (auto) 1.1 10 ^3/uL (0.4-5.4); Lymphocytes % (auto) 35.5 % (10.0-50.0); Mean Corpuscular Hemoglobin 30.2 pg (28.0-32.0); Mean Corpuscular Hgb Conc. 33.6 g/dL (32.0-36.0); Mean Corpuscular Volume 90.1 fL (80.0-100.0); Monocytes # (auto) 0.5 10 ^3/uL (0-1.3); Monocytes % (auto) 15.7 % (0.0-12.0); Neutrophils # (auto) 1.3 10 ^3/uL (1.6-8.6); Neutrophils % (auto) 40.9 % (37.0-80.0); Red Blood Cells 4.02 10^6/uL (4.0-5.20); White Blood Cell 3.2 10^3/uL (4.4-10.8)
[2021-10-24 09:46] LABS: Albumin 3.5 g/dL (3.4-5.0); Calcium 9.4 mg/dL (8.5-10.1); Potassium 3.9 mmol/L (3.5-5.1)
[2021-10-24 09:52] LABS: BUN/Creatinine Ratio 11.1; Bilirubin, Total 0.4 mg/dL (0.2-1.0); Total Protein 8.1 g/dL (6.4-8.2)
[2021-10-24 10:00] LABS: Thyroid Stimulating Hormone 0.59 uIU/mL (0.358-3.74)
== END | disposition home or self-care (01) ==
LOC: LAB 08:24
PROVIDERS: ATTEND Internal Medicine
DX: C18.7 Malignant neoplasm of sigmoid colon (principal); C78.7 Secondary malignant neoplasm of liver and intrahepatic bile duct; E56.9 Vitamin deficiency, unspecified; C18.9 Malignant neoplasm of colon, unspecified
CPT/HCPCS: 36415; 80053; 80061; 82306; 83615; 84439; 84443; 85025

== ENCOUNTER → 2021-11-07 | Outpatient (CLI) | payer BC ==
[2021-11-07 11:16] LABS: Hemoglobin 12.5 g/dL (12.2-16.2); Mean Corpuscular Hemoglobin 28.5 pg (28.0-32.0); Mean Corpuscular Hgb Conc. 32.1 g/dL (32.0-36.0); Mean Corpuscular Volume 88.9 fL (80.0-100.0); Red Blood Cells 4.39 10^6/uL (4.0-5.20); Red Cell Distribution Width 14.5 % (11.8-14.3); White Blood Cell 3.1 10^3/uL (4.4-10.8)
[2021-11-07 11:19] LABS: Band Neutrophils % (manual) 0; Basophils % (manual) 0 (0.0-2.0); Blast Cells 0; Metamyelocytes % 0; Myelocytes % 0; Promyelocytes % 0; Reactive Lymphocytes 0
[2021-11-07 11:34] LABS: Eosinophils % (manual) 1 (0-7); Lymphocytes % (manual) 28 (10.0-50.0); Monocytes % (manual) 19 (0-12)
[2021-11-07 11:43] LABS: Albumin 3.5 g/dL (3.4-5.0); Calcium 9.5 mg/dL (8.5-10.1); Potassium 4.3 mmol/L (3.5-5.1)
[2021-11-07 11:47] LABS: BUN/Creatinine Ratio 10.5; Bilirubin, Total 0.3 mg/dL (0.2-1.0); Total Protein 8.4 g/dL (6.4-8.2); Uric Acid 5.9 mg/dL (2.6-6.0)
[2021-11-07 11:55] LABS: Thyroid Stimulating Hormone 1.03 uIU/mL (0.358-3.74)
== END | disposition home or self-care (01) ==
LOC: LAB 11:01
PROVIDERS: ATTEND Internal Medicine
DX: C18.7 Malignant neoplasm of sigmoid colon (principal); C78.7 Secondary malignant neoplasm of liver and intrahepatic bile duct
CPT/HCPCS: 36415; 80053; 82378; 83615; 84436; 84443; 84550; 85007; 85027

== ENCOUNTER → 2021-11-21 | Outpatient (CLI) | payer BC ==
[2021-11-21 11:36] LABS: Hematocrit 38.8 % (36.0-46.0); Hemoglobin 12.5 g/dL (12.2-16.2); Mean Corpuscular Hemoglobin 28.3 pg (28.0-32.0); Mean Corpuscular Hgb Conc. 32.1 g/dL (32.0-36.0); Red Blood Cells 4.41 10^6/uL (4.0-5.20); Red Cell Distribution Width 15.1 % (11.8-14.3); White Blood Cell 4.3 10^3/uL (4.4-10.8)
[2021-11-21 11:47] LABS: Basophils % (manual) 0 (0.0-2.0); Blast Cells 0; Myelocytes % 0; Promyelocytes % 0; Reactive Lymphocytes 0
[2021-11-21 12:03] LABS: Albumin 3.7 g/dL (3.4-5.0); BUN/Creatinine Ratio 8.8; Potassium 4.2 mmol/L (3.5-5.1)
[2021-11-21 12:06] LABS: Bilirubin, Total 0.4 mg/dL (0.2-1.0); Total Protein 7.9 g/dL (6.4-8.2)
[2021-11-21 12:41] LABS: Band Neutrophils % (manual) 8; Eosinophils % (manual) 2 (0-7); Lymphocytes % (manual) 42 (10.0-50.0); Metamyelocytes % 2; Monocytes % (manual) 10 (0-12)
== END | disposition home or self-care (01) ==
LOC: LAB 11:19
PROVIDERS: ATTEND Internal Medicine
DX: C18.7 Malignant neoplasm of sigmoid colon (principal); C78.7 Secondary malignant neoplasm of liver and intrahepatic bile duct
CPT/HCPCS: 36415; 80053; 83615; 85007; 85027

== ENCOUNTER → 2022-01-06 | Outpatient (CLI) | payer BC ==
[2022-01-06 12:15] LABS: Basophils # (auto) 0 10 ^3/uL (0-0.2); Basophils % (auto) 0.4 % (0.0-2.0); Eosinophils # (auto) 0.6 10 ^3/uL (0-0.8); Eosinophils % (auto) 7.6 % (0.0-7.0); Hematocrit 40.2 % (36.0-46.0); Hemoglobin 12.8 g/dL (12.2-16.2); Lymphocytes # (auto) 1.4 10 ^3/uL (0.4-5.4); Lymphocytes % (auto) 19.1 % (10.0-50.0); Mean Corpuscular Hemoglobin 28.8 pg (28.0-32.0); Mean Corpuscular Hgb Conc. 31.8 g/dL (32.0-36.0); Mean Corpuscular Volume 90.3 fL (80.0-100.0); Monocytes # (auto) 0.4 10 ^3/uL (0-1.3); Monocytes % (auto) 5.5 % (0.0-12.0); Neutrophils % (auto) 67.4 % (37.0-80.0); Red Blood Cells 4.45 10^6/uL (4.0-5.20); Red Cell Distribution Width 19.1 % (11.8-14.3); White Blood Cell 7.4 10^3/uL (4.4-10.8)
[2022-01-06 12:59] LABS: Albumin 3.7 g/dL (3.4-5.0); Calcium 9.1 mg/dL (8.5-10.1); Magnesium 2.4 mg/dL (1.6-2.6); Potassium 4.4 mmol/L (3.5-5.1)
[2022-01-06 13:02] LABS: BUN/Creatinine Ratio 20.6; Bilirubin, Total 0.4 mg/dL (0.2-1.0); Total Protein 7.6 g/dL (6.4-8.2)
[2022-01-06 16:37] LABS: Folate (Folic Acid) 18.4 ng/mL (5.38-24)
== END | disposition home or self-care (01) ==
LOC: LAB 11:50
PROVIDERS: ATTEND Internal Medicine
DX: C18.7 Malignant neoplasm of sigmoid colon (principal); G62.0 Drug-induced polyneuropathy; C78.7 Secondary malignant neoplasm of liver and intrahepatic bile duct
CPT/HCPCS: 36415; 80053; 82607; 82746; 83615; 83735; 85025; 86160

== ENCOUNTER → 2022-02-07 | Outpatient (CLI) | payer BC ==
[2022-02-07 09:23] LABS: Basophils # (auto) 0.1 10 ^3/uL (0-0.2); Basophils % (auto) 1.2 % (0.0-2.0); Eosinophils # (auto) 0.3 10 ^3/uL (0-0.8); Hematocrit 39.3 % (36.0-46.0); Lymphocytes % (auto) 17.3 % (10.0-50.0); Mean Corpuscular Hemoglobin 29.9 pg (28.0-32.0); Mean Corpuscular Hgb Conc. 33.2 g/dL (32.0-36.0); Mean Corpuscular Volume 90.3 fL (80.0-100.0); Monocytes # (auto) 0.3 10 ^3/uL (0-1.3); Monocytes % (auto) 5.5 % (0.0-12.0); Neutrophils # (auto) 3.9 10 ^3/uL (1.6-8.6); Red Blood Cells 4.35 10^6/uL (4.0-5.20); Red Cell Distribution Width 15.1 % (11.8-14.3); White Blood Cell 5.5 10^3/uL (4.4-10.8)
[2022-02-07 09:48] LABS: Albumin 3.7 g/dL (3.4-5.0); Calcium 9.3 mg/dL (8.5-10.1); Potassium 4.2 mmol/L (3.5-5.1)
[2022-02-07 09:52] LABS: BUN/Creatinine Ratio 19.1; Bilirubin, Total 0.4 mg/dL (0.2-1.0); Total Protein 7.5 g/dL (6.4-8.2)
[2022-02-07 10:07] LABS: Thyroid Stimulating Hormone 0.79 uIU/mL (0.358-3.74)
== END | disposition home or self-care (01) ==
LOC: LAB 09:02
PROVIDERS: ATTEND Internal Medicine
DX: C18.7 Malignant neoplasm of sigmoid colon (principal); C78.7 Secondary malignant neoplasm of liver and intrahepatic bile duct
CPT/HCPCS: 36415; 80053; 82378; 83615; 84436; 84443; 85025

== ENCOUNTER 2022-03-02 06:31 | Day surgery (SDC) | payer BC ==
[2022-03-01 14:48] LABS: Basophils # (auto) 0 10 ^3/uL (0-0.2); Basophils % (auto) 0.4 % (0.0-2.0); Eosinophils # (auto) 0.2 10 ^3/uL (0-0.8); Eosinophils % (auto) 3.7 % (0.0-7.0); Hematocrit 39.7 % (36.0-46.0); Hemoglobin 13.1 g/dL (12.2-16.2); Lymphocytes # (auto) 1.4 10 ^3/uL (0.4-5.4); Lymphocytes % (auto) 24.4 % (10.0-50.0); Mean Corpuscular Hemoglobin 30.5 pg (28.0-32.0); Mean Corpuscular Hgb Conc. 33.1 g/dL (32.0-36.0); Mean Corpuscular Volume 92.1 fL (80.0-100.0); Monocytes # (auto) 0.3 10 ^3/uL (0-1.3); Monocytes % (auto) 6.1 % (0.0-12.0); Neutrophils # (auto) 3.7 10 ^3/uL (1.6-8.6); Neutrophils % (auto) 65.4 % (37.0-80.0); Red Blood Cells 4.31 10^6/uL (4.0-5.20); Red Cell Distribution Width 13.2 % (11.8-14.3); White Blood Cell 5.6 10^3/uL (4.4-10.8)
[2022-03-01 14:55] LABS: Urine Bacteria NONE SEEN /hpf (None Seen); Urine Blood Negative /uL (Negative); Urine Specific Gravity 1.004 (1.001-1.035); Urine WBC 1 /hpf (0 - 5)
[2022-03-01 15:02] LABS: INR 0.93 (0.9-1.15); Partial Thromboplastin Time 27.5 sec (24.6-33.4)
[2022-03-01 15:12] LABS: Albumin 3.5 g/dL (3.4-5.0); Calcium 8.8 mg/dL (8.5-10.1); Potassium 4.3 mmol/L (3.5-5.1)
[2022-03-01 15:16] LABS: BUN/Creatinine Ratio 15.4; Bilirubin, Total 0.2 mg/dL (0.2-1.0); Total Protein 7.7 g/dL (6.4-8.2)
[~2022-03-02] VITALS: Ht 144.8 cm; Wt 48.5 kg
[~2022-03-02 06:31] MED LIST changes: +GABA300C10 PO; +METO25TA93 PO
[2022-03-02] MEDS ORDERED: ceFAZolin 1GM VL ONE (06:49)
[2022-03-02] MEDS ORDERED: HEPARIN SODIUM (PORCINE) 5000 UNITS/ML 1ML VIAL ONE (06:50)
[2022-03-02] MEDS ORDERED: LIDOCAINE 1%HCL (LOCAL ANESTH) 10 ML MDV ONE (06:50)
[2022-03-02] MEDS ORDERED: BUPIVACAINE 0.25% INJ 50ML VIAL ONE (06:51)
[2022-03-02] MEDS ORDERED: HEPARIN 1,000 UNITS/ml 1ML VIAL ONE (06:51)
[2022-03-02] MEDS ORDERED: EPINEPHrine HCL 1 MG/1 ML AMP ONE (07:16)
[2022-03-02] MEDS ORDERED: ceFAZolin 1GM/50ML 50 ML IV ONE (07:25)
[2022-03-02] MEDS ORDERED: MIDAZOLAM HCL 2MG/2ML 2ml VIAL (1mg/ml) ONE (07:37)
[2022-03-02] MEDS ORDERED: fentaNYL CITRATE 100 MCG/2 ML VL ONE (07:37)
[2022-03-02] MEDS ORDERED: LIDOCAINE 1% (LOCAL ANESTH.) PF 5ml SDV ONE (07:45)
[2022-03-02] MEDS ORDERED: PROPOFOL 10 MG/ML 20 ML IV ONE (07:45)
[2022-03-02] MEDS ORDERED: ONDANSETRON HCL 4 MG/2 ML VIAL ONE (07:45)
[2022-03-02] MEDS ORDERED: ONDANSETRON HCL 4 MG/2 ML VIAL IV PRN (08:00)
[2022-03-02] MEDS ORDERED: ePHEDrine SULFATE 50 MG/ML AMP ONE (08:02)
[2022-03-02] MEDS ORDERED: NALOXONE HCL 0.4 MG/ML VIAL ONE (08:47)
[2022-03-02] MEDS: HYDROmorphone HCL 2 MG/ML VL/or syr IV PRN ×2 (09:10→09:25)
[2022-03-02 10:00] VITALS: BP 129/74
== END 2022-03-02 10:20 | disposition home or self-care (01) ==
LOC: SUR 06:31
PROVIDERS: ATTEND Surgery
DX: Z45.2 Encounter for adjustment and management of vascular access device (principal); C18.9 Malignant neoplasm of colon, unspecified; C78.7 Secondary malignant neoplasm of liver and intrahepatic bile duct; Z90.49 Acquired absence of other specified parts of digestive tract; Z20.822 Contact with and (suspected) exposure to COVID-19
CPT/HCPCS: 36415; 36590; 80053; 81001; 81025; 84702; 85025; 85610; 85730; 88300; J0171; J0690; J1170; J1644; J2001; J2250; J2310; J2405; J2704; J3010; J3490; U0003